=== PATIENT | male | born 1985 | race African-American/Black ===

== ENCOUNTER 2017-10-30 20:51 | Emergency (ER) | payer SELFPAY | END 2017-10-30 22:40 | disposition home or self-care (01) | LOC: ERS 20:51 | DX: J06.9 Acute upper respiratory infection, unspecified (principal) | CPT/HCPCS: 87804; 99283 ==

== ENCOUNTER 2017-12-21 01:07 | Emergency (ER) | payer SELFPAY ==
[2017-12-21 03:15] LABS: #Basophils 0.1 thou/uL (0.0-0.2); #Eosinphils 0.1 thou/uL (0.0-0.7); #Lymphocytes 2.2 thou/uL (1.20-3.40); #Monocytes 0.5 thou/uL (0.11-0.59); #Neutrophils 3.8 thou/uL (1.40-6.50); %Basophils 1.6 % (0.0-1.0); %Eosinophils 1.9 % (0.0-10.0); %Lymphocytes 32.4 % (21.0-51.0); %Neutrophils 56.1 % (42.0-75.0); Hemoglobin 14.4 g/dL (14.0-18.0); Mean Corpuscular HGB CONC 32.9 g/dL (32.0-36.0); Mean Corpuscular Hemoglobin 28.4 pg (27.0-31.0); Mean Corpuscular Volume 86.3 fl (80.0-94.0); Mean Platelet Volume 6.8 fL (7.4-10.4); Platelet Count 163 thou/uL (130-400); RBC Distribution Width 11.9 % (11.5-14.5); Red Blood Cell (RBC) Count 5.09 mill/uL (4.70-6.10); White Blood Cell (WBC) Count 6.8 thou/uL (4.8-10.8)
[2017-12-21] MEDS ORDERED: Ondansetron ODT 4 MG TAB ONE (03:21)
[2017-12-21 03:35] LABS: Anion Gap 8 mmol/L (10-20); BUN (Urea Nitrogen) 11 mg/dL (8.9-20.6); Calc. Creatinine Clearance 0 mL/min (70-130); Calcium 9.2 mg/dL (7.8-10.44); Carbon Dioxide 30 mmol/L (22-29); Chloride 104 mmol/L (98-107); Estimated GFR-MDRD Greater than 90; Glucose 101 mg/dL (70-105); Potassium 4.2 mmol/L (3.5-5.1); Sodium 138 mmol/L (136-145)
[2017-12-21 04:10] LABS: Bilirubin Negative (Negative); Blood, Urine Negative (Negative); Clarity CLEAR (Clear); Glucose, Urine (Dipstick) Negative (Negative); Leukocyte Negative (Negative); Nitrite Negative (Negative); Protein, Urine (Dipstick) Trace mg/dL (Neg-Trace); Specific Gravity, Urine 1.026 (1.002-1.036); Urobilinogen 0.2 mg/dL (0.2-1.0)
--- NOTE | 2017-12-23 13:14 | EKG ---
Test Reason : Blood Pressure : / mmHG Vent. Rate : 058 BPM Atrial Rate : 058 BPM P-R Int : 148 ms QRS Dur : 090 ms QT Int : 400 ms P-R-T Axes : 070 069 046 degrees QTc Int : [address] elevation, consider early repolarization Borderline ECG Confirmed by LACI PAGE MD ([id number]), commercial production editor AMIRAH ALVAREZ ([id number]) on 12/23/2017 1:14:37 PM Referred By: Confirmed By:LACI PAGE MD
== END 2017-12-21 04:55 | disposition home or self-care (01) ==
LOC: ERS 01:07
DX: R11.2 Nausea with vomiting, unspecified (principal); F17.210 Nicotine dependence, cigarettes, uncomplicated
CPT/HCPCS: 36415; 80048; 81003; 85025; 93005; Q0162

== ENCOUNTER 2018-02-11 17:08 | Emergency (ER) | payer SELFPAY ==
[2018-02-11] MEDS ORDERED: Ondansetron ODT 4 MG TAB ONE (17:58)
== END 2018-02-11 18:21 | disposition home or self-care (01) ==
LOC: ERS 17:08
DX: E86.0 Dehydration (principal); R11.2 Nausea with vomiting, unspecified; I10 Essential (primary) hypertension; F17.210 Nicotine dependence, cigarettes, uncomplicated
CPT/HCPCS: 99283; Q0162

== ENCOUNTER 2018-04-10 21:58 | Emergency (ER) | payer SELFPAY | END 2018-04-10 22:55 | disposition home or self-care (01) | LOC: ERS 21:58 | DX: J20.9 Acute bronchitis, unspecified (principal); Z71.6 Tobacco abuse counseling; F17.210 Nicotine dependence, cigarettes, uncomplicated | CPT/HCPCS: 99406 ==

== ENCOUNTER 2018-07-02 21:59 | Emergency (ER) | payer SELFPAY | END 2018-07-03 02:25 | disposition home or self-care (01) | LOC: ERS 21:59 | DX: G47.00 Insomnia, unspecified (principal); R53.83 Other fatigue; F17.210 Nicotine dependence, cigarettes, uncomplicated | CPT/HCPCS: 99283 ==

== ENCOUNTER 2018-07-18 14:19 | Emergency (ER) | payer SELFPAY | END 2018-07-18 16:00 | disposition home or self-care (01) | LOC: ERS 14:19 | DX: B34.9 Viral infection, unspecified (principal); M79.1 Myalgia; F17.210 Nicotine dependence, cigarettes, uncomplicated | CPT/HCPCS: 87804; 99283 ==

== ENCOUNTER 2018-11-25 22:17 | Emergency (ER) | payer OTHER, SELFPAY ==
[2018-11-25] MEDS ORDERED: Ketorolac Tromethamine 60 MG/2 ML VIAL ONE (23:02)
== END 2018-11-25 23:38 | disposition home or self-care (01) ==
LOC: ERS 22:17
DX: M79.642 Pain in left hand (principal); F17.210 Nicotine dependence, cigarettes, uncomplicated
CPT/HCPCS: 96372; J1885

== ENCOUNTER 2018-12-01 14:40 | Emergency (ER) | payer OTHER ==
--- NOTE | 2018-12-01 15:28 | RAD ---
THREE VIEWS LEFT HAND: COMPARISON: None. HISTORY: Furniture fell on hand 4 days ago with pain in the left hand. FINDINGS: Three views of the left hand show no evidence of acute fracture or dislocation. No soft tissue swell ing is seen. There appears to be a remote fracture of the base of the 5th metacarpal. IMPRESSION: No evidence of acute osseous abnormality. POS: [facility]
== END 2018-12-01 16:00 | disposition home or self-care (01) ==
LOC: ERS 14:40
DX: S60.222A Contusion of left hand, initial encounter (principal); F17.210 Nicotine dependence, cigarettes, uncomplicated; W20.8XXA Other cause of strike by thrown, projected or falling object, initial encounter

== ENCOUNTER 2019-02-11 19:41 | Emergency (ER) | payer OTHER ==
[2019-02-11] MEDS ORDERED: Ondansetron ODT 4 MG TAB ONE (20:37)
== END 2019-02-11 20:40 | disposition home or self-care (01) ==
LOC: ERS 19:41
DX: R11.2 Nausea with vomiting, unspecified (principal); F17.210 Nicotine dependence, cigarettes, uncomplicated
CPT/HCPCS: 99283; Q0162

== ENCOUNTER 2019-02-27 18:55 | Emergency (ER) | payer OTHER ==
--- NOTE | 2019-02-27 19:19 | RAD ---
XR Chest 1 View Portable History: [Syncope] Comparison: None. Findings: The lungs are clear. No pneumothorax or effusion. Cardiac silhouette and mediastinal contou rs are within normal limits. Impression: No acute intrathoracic abnormality.
--- NOTE | 2019-03-02 17:23 | EKG ---
Test Reason : SYNCOPE Blood Pressure : / mmHG Vent. Rate : 054 BPM Atrial Rate : 054 BPM P-R Int : 140 ms QRS Dur : 096 ms QT Int : 404 ms P-R-T Axes : 051 067 049 degrees QTc Int : 383 ms Sinus bradycardia RSR' or QR pattern in V1 suggests right ventricular conduction delay ST elevation, consider early repolarization No STEMI Borderline ECG Confirmed by NOY VILLA ([id number]), slot editor CHRIS ELDER ([id number] on 03/02/2019 5:22:39 PM Referred By: DO JUARES Confirmed By:NOY VILLA
== END 2019-02-27 22:09 | disposition home or self-care (01) ==
LOC: ERS 18:55
DX: R55 Syncope and collapse (principal); F17.210 Nicotine dependence, cigarettes, uncomplicated
CPT/HCPCS: 36416; 71045; 93005

== ENCOUNTER 2019-12-30 10:18 | Emergency (ER) | payer OTHER, SELFPAY | END 2019-12-30 12:15 | disposition home or self-care (01) | LOC: ERS 10:18 | DX: R05 Cough (principal); F17.210 Nicotine dependence, cigarettes, uncomplicated | CPT/HCPCS: 87804; 93005 ==